=== PATIENT | male | born 1990 | race Caucasian/White ===

== ENCOUNTER 2016-08-14 20:34 | Emergency (ER) | payer OTHER, BC ==
--- OUTSIDE RECORDS SUMMARY | 2016-08-14 21:57 | XMS REPORT | Continuity of Care Document ---
:1990 Author Organization [facility] ([facility]) Address [address] [place] [address] Phone [phone] Care Team Providers Name Role Phone Georgette King Primary Care Provider [phone] Source Comments This disclosure is being made pursuant to the Care Everywhere program, applicable federal and state laws, and may not contain all informaitonavailable regarding this patient.[facility] ([facility]) Active Allergies and Adverse Reactions No Active Allergies Current Medications Not on file Active Problems Not on file Most Recent Encounters Date Type Specialty Providers Description 06/28/2016 Office Visit OBG Reproductive Que Brian, Dx: Infertility male Social History Tobacco Use Types Packs/Day Years Used Date Never Assessed Last Filed Vital Signs Vital Sign Reading Time Taken Blood Pressure 144/67 03/07/2004 1:42 PM CDT Pulse 80 03/07/2004 1:42 PM CDT Temperature 36.8 C (98.24 F) 03/07/2004 1:42 PM CDT Respiratory Rate 16 03/07/2004 1:42 PM CDT Height 1.758 m (5' 9.21") 03/07/2004 1:42 PM CDT Weight 85.898 kg (189 lb 5.9 oz) 03/07/2004 1:42 PM CDT Body Mass Index 27.79 03/07/2004 1:42 PM CDT Oxygen Saturation - - Plan of Care Date Type Specialty Providers Description 09/19/2016 Appointment OBG Reproductive Chief Comp: Patient Reported Reason For Visit 09/19/2016 Appointment OBG Reproductive Chief Comp: Patient Reported Reason For Visit Health Maintenance Due Date Last Done Comments Hepatitis B Vaccine (1 of 3 - Primary Series) 1990 HPV Vaccine (1 of 3 - Male 3 Dose Series) 2000 Tdap Vaccine 2000 Lipid Disorder Screening 2007 MMR Vaccine 2007 Td Vaccine 2007 Varicella Vaccine (1 of 2 - Adult - No Evidence of 2007 Immunity) Influenza Vaccine: Seasonal (#1) 02/05/2016 Results from Last 3 Months REPRODUCTIVE-SEMEN ANALYSIS (06/28/2016 9:05 AM) Component Value Range Sample 1 Technologist RMB Days Continence 3 2-7 Volume (mL) 4.1 >=1.5 mL pH 7.2 >=7.2 Complete Sample Yes Yes Appearance Normal Normal Liquefaction Normal Normal Viscosity Abnormal(A) Normal Agglutination No No Sperm Concentration/ml (x 10^6) 15.00 >=15.00 million/ml Total Sperm Count (x 10^6) 61.50 >=39.00 million Total Motility 31.3(L) >=40.0 % Progressive Motility 28(L) >=32 % Total Motile Sperm Count (x 19.25 million 10^6) (Calculated Field Only) Seminal Fluid Analysis Comments 300,000 round cells/ml neat semen. Layered sample on 2 gradients to isolate motile sperm for IUI. Reduced viscosity by pipetting prior to processing. Abnormal fluid characteristics or contents may con tribute to inaccurate sperm count and percent motility estimate. Patient reported no changes in his health history since previous visit. Reference ranges reflect the lower reference limits (5th percentiles and their 95% confidence intervals) for semen characteristics of men whose partners became within 12 months of discontinui ng contraceptive use. Reference: WHO Laboratory Manual for the Examination and Processing of Human Sperm. Fifth Edition, 2010. POST WASH DISCLAIMER: The Post Wash information provided below is for informational purposes and is not part of the diagnostic semen analysis. POST WASH (TECH) RMB Post Wash Volume (ml) 0.53 Post Wash Speed 3.25 Post Wash Motile Sperm/ml (x 3.10 10^6) Post Wash Sperm/ml (x 10^6) 3.40 Post Wash Total Motile (x 10^6) 1.64 Post Wash Total Sperm (x 10^6) 1.80 Post Wash % Motile 91.2 Specimen Semen
[2016-08-14 22:00] VITALS: BP 139/75
[2016-08-14] MEDS ORDERED: ORPHENADRINE CITRATE 30 MG/ML VIAL IM ONE (22:01)
[2016-08-14] MEDS ORDERED: NAPROXEN SODIUM 550 MG TABLET PO ONE (22:02)
[2016-08-14] MEDS ORDERED: ORPHENADRINE CITRATE 100 MG TABLET.SA PO ONE ×2 (22:03→22:17)
[2016-08-14] MEDS ORDERED: ORPHENADRINE CITRATE 30 MG/ML VIAL ONE (22:05)
[2016-08-14] MEDS ORDERED: KETOROLAC TROMETHAMINE 60 MG/2 ML VIAL IM ONE (22:05)
--- NOTE | 2016-08-14 22:05 | ERNOTE ---
Back Pain ER HPI Presenting Symptoms: injury/pain to back Time Seen by Provider: 08/14/16 21:49 Source: patient, family Exam Limitations: no limitations Immunizations: IMMUNIZATION HX Immunizations Up to Date Yes History of Influenza Vaccine No Hx Pneumococcal Vaccination No Allergies/Adverse Reactions: Allergies cephalexin [Cephalexin] Allergy (Intermediate, Verified 08/14/16 20:46) Hives Home Medications: HOME MEDICATIONS Naproxen [Naprosyn] 500 mg PO PRN 08/14/16 [Last Taken Unknown] Narrative: Hurt his back at work lifting a 30-40 lb object carrying it up some stairs and setting it on a lower shelf. he felt a pop at that time and hand sciatica and muscle spasm since that time. Saw occupational health and is set up to see the [facility] physician tomorrow. - Patient's Past Medical History Patient History - Medical: No pertinent hx Patient History - Cardiac/Respiratory: No pertinent hx Patient History - Cancer: No Hx of Cancer Patient History - Surgical Procedures: Appendectomy, T & A Patient History - Other: None - Social History Living Situations: home Abuse History: No History of abuse Psych History: No pertinent hx Smoking Status: Former smoker Have you smoked in the past 12 months: Yes Patient requests Smoking Cessation Consult: No Initiate information on Smoking Cessation: No Alcohol Use: none Drug Use: none - Immunizations Immunizations Up to Date: Yes Hx Pneumococcal Vaccination: No History of Influenza Vaccine: No Physical Exam - Physical Exam General Appearance: Present: wd/wn, alert, mild distress Back Exam: Present: no vertebral tenderness, other - Tender right SI, with muscle spasm Extremity Exam: Present: normal inspection, non-tender, no edema, decreased range of motion - right leg Neurological Exam: Present: alert, oriented, normal mood/affect, no motor/ sensory deficits, other - SLR pos right Skin Exam: Present: normal color, warm/dry ED Progress - Vital Signs Vital Signs: Vital Signs 08/14/16 20:40 Temperature 35.5 C L Pulse Rate 83 Respiratory 15 Rate Blood Pressure 125/76 O2 Sat by Pulse 100 Oximetry - Progress/Reassessment Chief Complaint: Back Pain Progress Note-Subjective: 08/14/16 gave pt. IM toradol and norflex in ED. gave take home naproxen 550 mg x1 and norflex 60mg x1 to take in the AM to hold him over until he sees the [facility] doctor later on in the day Departure Clinical Impression: Sciatica Qualifiers: Laterality: right Qualified Code(s): M54.31 - Sciatica, right side - Departure Disposition: Home Follow Up Needed Condition: Good Instructions: Sciatica, [id number] Additional Instructions: follow up with the company doctor as scheduled.
[2016-08-14] MEDS: KETOROLAC TROMETHAMINE 60 MG/2 ML VIAL IM ONE ×2 (22:07→22:08)
[2016-08-14] MEDS ORDERED: NAPROXEN SODIUM 550 MG TABLET ONE (22:17)
== END 2016-08-14 22:21 | disposition home or self-care (01) ==
LOC: ER 20:34
DX: M54.31 Sciatica, right side (principal); Z87.891 Personal history of nicotine dependence; X50.9XXA Other and unspecified overexertion or strenuous movements or postures, initial encounter